=== PATIENT | female | born 1945 | race Caucasian/White ===

== ENCOUNTER 2019-12-08 12:16 | Emergency (ER) | payer MEDICARE, BC ==
[~2019-12-08] VITALS: Ht 170.2 cm; Wt 74.8 kg
[2019-12-08] MEDS ORDERED: LIDOCAINE 1%-EPI 1:100,000 20 ML VIAL MC ONE (12:45)
[2019-12-08] MEDS ORDERED: ACETAMINOPHEN ES 500 MG TABLET PO ONE (12:45)
[2019-12-08] MEDS ORDERED: NEOMY/BACITRA/POLYMYXIN B OINT UD PACKET TP ONE ×2 (12:45→12:48)
[2019-12-08] MEDS ORDERED: ACETAMINOPHEN ES 500 MG TABLET ONE (12:48)
[2019-12-08] MEDS ORDERED: LIDOCAINE 1%-EPI 1:100,000 20 ML VIAL ONE (12:49)
--- NOTE | 2019-12-08 15:28 | NUR ---
Patient discharged to home in stable condition with brisk steady gait. Written and verbal after care instructions given to patient and patient's son. Patient & family verbalized understanding & compliance of instructions.
== END 2019-12-08 15:29 | disposition home or self-care (01) ==
LOC: ER 12:16
DX: S01.81XA Laceration without foreign body of other part of head, initial encounter (principal); S05.42XA Penetrating wound of orbit with or without foreign body, left eye, initial encounter; W22.8XXA Striking against or struck by other objects, initial encounter; Y93.89 Activity, other specified; Y92.89 Other specified places as the place of occurrence of the external cause; Y99.8 Other external cause status
CPT/HCPCS: 12014; 70450; 70486; 99284; J3490; A4217; A4663; A9150